=== PATIENT | male | born 1970 | race American Indian/Alaskan Native ===

== ENCOUNTER 2021-05-23 09:57 | Emergency (ER) | payer OTHER ==
[2021-05-23] MEDS ORDERED: Ketorolac 30 MG/ML SDV IM ONE (10:44)
--- NOTE | 2021-05-23 10:50 | EDM.PDOC ---
ED HPI GENERAL MEDICAL PROBLEM - General Chief Complaint: Lower Extremity Injury/Pain Stated Complaint: TWISTED LEFT KNEE Time Seen by Provider: 05/23/21 10:38 Source of Information: Reports: Patient, Family, RN Notes Reviewed History Limitations: Reports: No Limitations - History of Present Illness INITIAL COMMENTS - FREE TEXT/NARRATIVE: 50-year-old gentleman presents emergency department day complaint of left knee pain, he injured himself when he was kicking snow off his boots had a twisting injury on the left knee heard a pop he is now complaining of pain on the outside of his knee difficult for him to bear weight rates the pain 10 out of 10 with ambulation 4 out of 10 at rest Left Knee Pain Score (Numeric/FACES): 5 - Related Data Allergies Allergy/AdvReac Type Severity Reaction Status Date / Time No Known Allergies Allergy Verified 05/23/21 10:34 Home Meds: Home Meds NK [No Known Home Meds] 05/23/21 [History] Past Medical History Musculoskeletal History: Reports: Fracture - Past Surgical History GI Surgical History: Reports: Appendectomy Musculoskeletal Surgical History: Reports: Other (See Below) Other Musculoskeletal Surgeries/Procedures:: femur fx with repair. Social & Family History - Tobacco Use Tobacco Use Status *Q: Light Tobacco User Years of Tobacco use: 25 Packs/Tins Daily: 0.5 - Caffeine Use Caffeine Use: Reports: Coffee - Recreational Drug Use Recreational Drug Use: No Review of Systems - Review of Systems Review Of Systems: See Below Musculoskeletal: Reports: Joint Pain Neurological: Reports: No Symptoms ED EXAM, GENERAL - Physical Exam Exam: See Below Free Text/Narrative:: Examination of the left knee I do not appreciate any erythema there is no edema there is no specific joint line tenderness pain is exacerbated with extension of the knee he will not tolerate much of an exam Exam Limited By: No Limitations General Appearance: Alert, WD/WN, No Apparent Distress Course - Vital Signs Last Recorded V/S: Last Vital Signs Temp 97.8 F 05/23/21 10:30 Pulse 72 05/23/21 10:30 Resp 18 05/23/21 10:30 BP 122/75 05/23/21 10:30 Pulse Ox 98 05/23/21 10:30 - Orders/Labs/Meds Orders: Active Orders 24 hr Category Date Time Status DME for Discharge [COMM] Stat Oth 05/23/21 12:19 Ordered Meds: Medications Discontinued Medications Generic Name Dose Route Start Last Admin Trade Name Yumiko PRN Reason Stop Dose Admin Ketorolac Tromethamine 30 mg 05/23/21 10:44 05/23/21 11:34 Ketorolac 30 Mg/Ml Sdv IM 05/23/21 10:45 30 mg ONETIME ONE Administration Departure - Departure Time of Disposition: 12:20 Disposition: Home, Self-Care 01 Condition: Fair Clinical Impression: Left knee pain Qualifiers: Chronicity: acute Qualified Code(s): M25.562 - Pain in left knee - Discharge Information Instructions: Acute Knee Pain, Adult Referrals: PCP,None [Primary Care Provider] - Forms: ED Department Discharge Additional Instructions: Continue to use the Berry wrap and crutches for pain control, use ibuprofen as needed for pain medication, please followup with your primary care provider in 3-5 days if not better, please call return to the emergency department with worsening of symptoms. Sepsis Event Note (ED) - Evaluation Sepsis Screening Result: No Definite Risk - Focused Exam Vital Signs: Vital Signs Temp Pulse Resp BP Pulse Ox 05/23/21 10:30 97.8 F 72 18 122/75 98 - My Orders Last 24 Hours: My Active Orders 05/23/21 12:19 DME for Discharge [COMM] Stat - Assessment/Plan Last 24 Hours: My Active Orders 05/23/21 12:19 DME for Discharge [COMM] Stat Plan: Assessment Acuity = acute Site and laterality = left knee pain Etiology = twisting injury Manifestations = none Location of injury = Home Lab values = x-ray reveals no fracture Plan I did review films with him he is going to try the Berry wrap as needed he has crutches he will follow-up with primary care for further evaluation next 3 to 5 days This note was dictated using [employer] voice recognition software please call with any questions on syntax or grammar.
--- NOTE | 2021-05-23 11:59 | CR ---
Knee 3V Lt CLINICAL HISTORY: Twisted FINDINGS: No acute fracture or dislocation is noted. There are no osseous lesions. Joint spaces are well-maintained Impression: Negative
== END 2021-05-23 12:52 | disposition home or self-care (01) ==
LOC: JP.ED 09:57
DX: M25.562 Pain in left knee (principal); Z72.0 Tobacco use
CPT/HCPCS: 73562; 96372; 99283; J1885

== ENCOUNTER 2021-12-18 02:55 | Emergency (ER) | payer OTHER ==
[2021-12-18] MEDS ORDERED: levETIRAcetam in NaCl (iso-os) 1,500 MG in Premix Bag 100 BAG IV ONE ×2 (03:16)
[2021-12-18 03:38] LABS: ESTIMATED GFR 103 mL/min (>60)
== END 2021-12-18 04:05 ==
LOC: JP.ED 02:55
DX: G40.409 Other generalized epilepsy and epileptic syndromes, not intractable, without status epilepticus (principal); F17.210 Nicotine dependence, cigarettes, uncomplicated
CPT/HCPCS: 36415; 80053; 82550; 83605; 85025; 96365; 99283; 99284; J1953